=== PATIENT | male | born 1975 | race African-American/Black ===

== ENCOUNTER 2016-12-06 20:21 | Emergency (ER) | payer OTHER ==
[~2016-12-06] VITALS: Ht 193 cm; Wt 119.3 kg
[2016-12-06 20:40] VITALS: BP 145/78; PULSE 83; RESP 16; TEMP 97.8; O2SAT 100
--- NOTE | 2016-12-06 20:40 | NUR ---
Patient to ER bed 1 to gown for evaluation. Side rails up. Report given to FATEMEH ARROYO.
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
--- NOTE | 2016-12-06 21:29 | NUR ---
MD Garcia at bedside examining pt
[2016-12-06] MEDS ORDERED: LIDOCAINE/EPI 1% 1:100000 20 ML VIAL INJ ONE (21:30)
[2016-12-06 22:00] VITALS: BP 140/76; PULSE 82; RESP 16; TEMP 97.8; O2SAT 100
--- NOTE | 2016-12-06 22:00 | NUR ---
Patient given written and verbal discharge instructions and verbalizes understanding. ER MD Garcia discussed with patient the results and treatment provided. Patient in stable condition. ID arm band removed. no Rx given. Patient educated on pain management and to follow up with PMD. Pain Scale 0/10 Opportunity for questions provided and answered.
== END 2016-12-06 22:00 | disposition home or self-care (01) ==
LOC: SED 20:21
DX: S30.850A Superficial foreign body of lower back and pelvis, initial encounter (principal); X58.XXXA Exposure to other specified factors, initial encounter; Y93.89 Activity, other specified; Y92.89 Other specified places as the place of occurrence of the external cause; Y99.8 Other external cause status
CPT/HCPCS: 99284